=== PATIENT | male | born 1975 | race Caucasian/White ===

== ENCOUNTER 2017-12-12 18:28 | Emergency (ER) | payer MEDICARE ==
[~2017-12-12] VITALS: Ht 182.9 cm; Wt 84.1 kg
[~2017-12-12 18:28] MED LIST: AMOXICILLIN/CLA1 TA1 PO; BACTRIM DS 8001 TAB PO; CELEXA; CEPHALEXIN500 M1 PO; COUMADIN 5MG5 MG/TAB PO; FERROUS SU325 MG/TAB PO; FOLIC ACID 40400 MCG PO; NAPROSYN500 MG PO; NORCO 325 MG-51 TAB PO; NORCO 325 MG-7.1 TAB PO; ROXICODONE30 MG; TRAZADONE HYDR100 MG PO; VITAMIN C PURE500 MG PO; ZITHROMAX 250M250 MG PO; ZOFRAN 4MG T4 MG/TAB PO
[2017-12-12 18:33] VITALS: BP 141/70; TEMP 97
[2017-12-12] MEDS ORDERED: CEPHALEXIN500 M1 PO (21:49)
[2017-12-12] MEDS ORDERED: BACTRIM DS 8001 TAB PO (21:49)
[2017-12-12 22:04] VITALS: PULSE 96
== END 2017-12-12 22:04 | disposition home or self-care (01) ==
LOC: COL.ER 18:28
DX: L02.511 Cutaneous abscess of right hand (principal); F19.90 Other psychoactive substance use, unspecified, uncomplicated

== ENCOUNTER 2017-12-14 17:36 | Emergency (ER) | payer MEDICARE ==
[~2017-12-14] VITALS: Ht 182.9 cm; Wt 84.1 kg
[2017-12-14 17:47] VITALS: BP 152/85; TEMP 97.2
[2017-12-14] MEDS ORDERED: MOBIC 7.5MG7.5 MG PO (18:35)
[2017-12-14 18:46] VITALS: PULSE 95
== END 2017-12-14 18:51 | disposition home or self-care (01) ==
LOC: COL.ER 17:36
DX: L03.113 Cellulitis of right upper limb (principal); L02.413 Cutaneous abscess of right upper limb; M25.512 Pain in left shoulder; F17.210 Nicotine dependence, cigarettes, uncomplicated

== ENCOUNTER 2018-02-12 18:06 | Emergency (ER) | payer SELFPAY ==
[~2018-02-12] VITALS: Ht 182.9 cm; Wt 86.4 kg
[~2018-02-12 18:06] MED LIST changes: +MOBIC 7.5MG7.5 MG PO
[2018-02-12 18:10] VITALS: BP 120/71
[2018-02-12] MEDS ORDERED: PEN-VEE K500 MG PO (18:39)
[2018-02-12 19:11] VITALS: PULSE 70; TEMP 98
== END 2018-02-12 19:07 | disposition home or self-care (01) ==
LOC: COL.ER 18:06
DX: K02.9 Dental caries, unspecified (principal); K04.7 Periapical abscess without sinus; F17.210 Nicotine dependence, cigarettes, uncomplicated

== ENCOUNTER 2018-07-16 23:40 | Emergency (ER) | payer SELFPAY ==
[~2018-07-16] VITALS: Ht 182.9 cm; Wt 84.1 kg
[~2018-07-16 23:40] MED LIST changes: +PEN-VEE K500 MG PO
[2018-07-16 23:43] VITALS: TEMP 98.9
[2018-07-17 02:24] LABS: BASO # 0.1 (0.0-0.2); BASO % 0.5 % (0.0-2.0); EOS # 0.4 (0.0-0.7); EOS % 2.8 % (0-4.0); GRAN # 9.2 (1.4-6.5); GRAN % 72.5 % (42.2-75.2); HEMATOCRIT 45.5 % (42.0-52.0); HEMOGLOBIN 15.1 g/dl (13.5-18.0); LYMPH # 2.1 (1.2-3.4); LYMPH % 16.7 % (20.0-51.0); MEAN CELL VOLUME 83 fl (80.0-100.0); MEAN CORPUSCULAR HEMOGLOBIN 28 pg (27.0-31.0); MEAN CORPUSCULAR HGB CONC 33 g/dl (33.0-37.0); MEAN PLATELET VOLUME 9.8 fl (7.4-10.4); MONO # 0.9 (0.1-0.6); MONO % 7.2 % (1.7-9.3); PLATELET COUNT 195 K/mm3 (130-400); RED BLOOD COUNT 5.46 M/mm3 (4.20-5.60); REDCELL DISTRIBUTION WIDTH-CV 13.6 % (11.5-14.5)
[2018-07-17 02:40] LABS: ALBUMIN 3.7 gm/dL (3.5-5.0); BILIRUBIN,TOTAL 0.5 mg/dL (0.0-1.0); C-REACTIVE PROTEIN 1.6 mg/dL (0.0-0.9); CALCIUM 8.9 mg/dL (8.4-10.2); CREATININE, serum 0.85 mg/dL (0.66-1.25); TOTAL PROTEIN 7.6 gm/dL (6.4-8.2)
[2018-07-17] MEDS ORDERED: AMOXICILLIN 8751 TAB PO (05:22)
[2018-07-17 05:30] VITALS: BP 132/66; PULSE 105
== END 2018-07-17 05:31 | disposition home or self-care (01) ==
LOC: COL.ER 23:40
PROVIDERS: Physician Assistant
DX: L02.11 Cutaneous abscess of neck (principal); L03.221 Cellulitis of neck; F17.210 Nicotine dependence, cigarettes, uncomplicated; F11.10 Opioid abuse, uncomplicated; Z98.890 Other specified postprocedural states
CPT/HCPCS: J2543; Q9967

== ENCOUNTER → 2018-07-18 | Outpatient (CLI) | payer SELFPAY ==
[~2018-07-18] MED LIST changes: +AMOXICILLIN 8751 TAB PO
== END ==
LOC: ZCOL.LAB 15:58
DX: L02.91 Cutaneous abscess, unspecified (principal)

== ENCOUNTER 2019-03-15 01:20 | Emergency (ER) | payer SELFPAY ==
[~2019-03-15] VITALS: Ht 182.9 cm; Wt 90.3 kg
[2019-03-15 01:27] VITALS: BP 103/83; TEMP 98.5
[2019-03-15] MEDS ORDERED: BACTRIM DS 8001 TAB PO (02:21)
[2019-03-15] MEDS ORDERED: CEPHALEXIN500 M1 PO (02:21)
[2019-03-15 02:50] VITALS: PULSE 80
== END 2019-03-15 02:52 | disposition home or self-care (01) ==
LOC: COL.ER 01:20
DX: L02.416 Cutaneous abscess of left lower limb (principal); L03.116 Cellulitis of left lower limb; F17.210 Nicotine dependence, cigarettes, uncomplicated; L03.115 Cellulitis of right lower limb; L02.415 Cutaneous abscess of right lower limb; Z98.890 Other specified postprocedural states

== ENCOUNTER → 2019-09-10 | Outpatient (CLI) | payer OTHER ==
[~2019-09-10] MED LIST changes: +ATARAX 25MG25 MG/TAB PO; +CEFAZOLIN SODI100 ML IV; +CYMBALTA 30MG30 MG PO; +DULCOLAX STOOL100 MG PO; +GOOD NEIGH1200 MG/15 PO; +MIRALAX PA17 GM/Dose PO; +MOTRIN 600600 MG/TAB PO; +MS CONTIN 330 MG/TAB PO; +NICODERM C14 MG/PATC TD; +ROXICODONE 55 MG/TAB PO; +SENNA-S 50 MG-81 TAB PO; +SEROQUEL 2525 MG/TAB PO; +TYLENOL 500MG500 MG PO; +ZOFRAN ODT4 MG PO; +ZOVIRAX800 MG PO
== END ==
LOC: COL.RAD 10:00
DX: M25.551 Pain in right hip (principal); Z96.641 Presence of right artificial hip joint
CPT/HCPCS: Q9967

== ENCOUNTER → 2020-02-25 | Outpatient (CLI) | payer MEDICARE, MEDICAID ==
--- NOTE | 2020-02-23 13:20 | NUR ---
CALLED FOR ORDER
[~2020-02-25] VITALS: Ht 182.9 cm; Wt 104.5 kg
[~2020-02-25] MED LIST changes: +ACIDOPHILIS PO; +CELEXA 20MG20 MG/TAB PO; +COLACE 100100 MG/CAP PO; +DAZIDOX10 MG PO; +FLEXERIL 1010 MG/TAB PO; +LOVENOX 4040 MG/0.4 SQ; +MASON NATURAL325 MG PO; +NICODERM C21 MG/PATC TD; +REMERON30 MG PO; +ROCEPHIN 2GM VIAL21 IJ; +SENOKOT S 50 MG1 TAB PO; +TYLENOL W/COD1 UDTAB PO
[2020-02-25 13:19] VITALS: BP 122/79; PULSE 83
[2020-02-25 14:15] VITALS: BP 117/75; PULSE 80
--- NOTE | 2020-02-25 14:45 | NUR ---
PT TAKEN DOWNSTAIRS IN WHEELCHAIR TO POV.
== END ==
LOC: COL.RAD 12:00
DX: Z45.2 Encounter for adjustment and management of vascular access device (principal)

== ENCOUNTER 2020-04-24 17:45 | Emergency (ER) | payer MEDICAID ==
[~2020-04-24] VITALS: Ht 182.9 cm; Wt 104.5 kg
[2020-04-24 18:10] VITALS: BP 126/80; TEMP 98.5
[2020-04-24 19:57] LABS: BASO % 0.5 % (0.0-2.0); EOS # 0.1 (0.0-0.7); EOS % 0.9 % (0-4.0); GRAN # 6.7 (1.4-6.5); GRAN % 75.8 % (42.2-75.2); HEMATOCRIT 39.1 % (42.0-52.0); HEMOGLOBIN 12.1 g/dl (13.5-18.0); LYMPH # 1.2 (1.2-3.4); MEAN CELL VOLUME 82 fl (80.0-100.0); MEAN CORPUSCULAR HEMOGLOBIN 25 pg (27.0-31.0); MEAN CORPUSCULAR HGB CONC 31 g/dl (33.0-37.0); MEAN PLATELET VOLUME 10.5 fl (7.4-10.4); MONO # 0.8 (0.1-0.6); MONO % 8.6 % (1.7-9.3); PLATELET COUNT 169 K/mm3 (130-400); RED BLOOD COUNT 4.78 M/mm3 (4.20-5.60)
[2020-04-24 20:06] LABS: ALBUMIN 4.1 gm/dL (3.5-5.0); BILIRUBIN,TOTAL 1.1 mg/dL (0.0-1.0); C-REACTIVE PROTEIN 3.2 mg/dL (0.0-0.9); CALCIUM 9.4 mg/dL (8.4-10.2); CREATININE, serum 0.86 (0.66-1.25); POTASSIUM 4.2 mmol/L (3.4-5.0)
[2020-04-24] MEDS ORDERED: DOXYCYCLINE 10100 MG PO (20:43)
[2020-04-24 21:31] VITALS: PULSE 73
== END 2020-04-24 21:31 | disposition home or self-care (01) ==
LOC: COL.ER 17:45
PROVIDERS: Emergency Medicine
DX: R60.0 Localized edema (principal); L03.116 Cellulitis of left lower limb; F41.9 Anxiety disorder, unspecified
CPT/HCPCS: J1650; J1885

== ENCOUNTER → 2020-05-05 | Outpatient (CLI) | payer MEDICAID ==
[~2020-05-05] MED LIST changes: +ARYMO ER60 MG PO; +DOXYCYCLINE 10100 MG PO; +ELIDEL 100G TOP; +PERCOCET 325 MG1 TA3 PO
== END ==
LOC: COL.LAB 08:00
DX: Z20.828 Contact with and (suspected) exposure to other viral communicable diseases (principal)

== ENCOUNTER 2020-05-11 08:51 | Day surgery (SDC) | payer MEDICAID ==
[~2020-05-11] VITALS: Ht 182.9 cm; Wt 100.8 kg
--- NOTE | 2020-05-11 08:45 | NUR ---
PATIENT ADMITED INTO ROOM 330 FOR ELECTIVE RIGHT HIP REVISION. SEE ORDERS.
[~2020-05-11 08:51] MED LIST changes: -ARYMO ER60 MG PO; -ELIDEL 100G TOP; -PERCOCET 325 MG1 TA3 PO
[2020-05-11 09:02] VITALS: BP 110/71; PULSE 72; TEMP 98.3
[2020-05-11] MEDS ORDERED: ARYMO ER60 MG PO (09:28)
[2020-05-11] MEDS ORDERED: MS CONTIN 330 MG/TAB PO (09:30)
[2020-05-11] MEDS ORDERED: PERCOCET 325 MG1 TA3 PO (09:33)
[2020-05-11] MEDS ORDERED: ELIDEL 100G TOP (09:35)
--- NOTE | 2020-05-11 10:10 | NUR ---
PATIENTS URINE DRUG SCREEN CAME BACK POSITIVE. SURGEON, ANESTHESIA & OR STAFF NOTIFIED.
[2020-05-11 10:37] LABS: TRICYCLIC ANTIDEPRESS URINE NEGATIVE
--- NOTE | 2020-05-11 11:00 | NUR ---
AT BEDSIDE TO TALK WITH PATIENT ABOUT HIS DRUG ABUSE AND POSITIVE DRUG SCREEN ON ADMIT. PATIENT TESTED POSITIVE FOR MULTIPLE CONTROLLED SUBSTANCES ON ADMIT INCLUDING METH. PATIENT HAS KNOWN HX OF DRUG/ALCOHOL ABUSE AND IS HEP C POSITIVE. PATIENT CLAIMS HE WAS ONLY AROUND PEOPLE AT A [employer] DOING METH. EDUCATED PATIENT ABOUT HOW A POSITIVE DRUG SCREEN WORKS AND WHAT THAT INDICATES. PATIENT ADMITES HE DOESN'T DO METH "ALL THE TIME" BUT WAS UNABLE TO STAY AWAY FROM METH FOR 48-72 HOURS BEFORE HIS SCHEDULED SURGERY. PATIENT ALSO ADMITS HE HAS BEEN TAKEN XANAX WITHOUT A PRESCRIPTION. TALKED WITH PATIENT AND TOLD HIM HE WOULD INFORM HIS PCP, AND SAID "I NEED YOU TO HELP ME, HELP YOU". WENT ON TO SAY WE WOULD GET HIM RESCHEDULED BUT WE NEED A PLAN TO AVOID THIS FROM HAPPENING AGAIN. THE PATIENT AGREED. FORMULA TECHNICIAN NOTIFIED OF CANCELED PROCEDURE, INSURANCE/FORMS TO BE COMPLETED BEFORE RELEASE.
--- NOTE | 2020-05-11 12:06 | NUR ---
EMERITA was notified by the patient's RN that the patient's surgery is being canceled, due to him testing postitive for drugs. EMERITA informed valet service attendant, Emilia. The patient is being downgraded to observation status. EMERITA and valet service attendant, Emilia, met with the patient to inform. EMERITA read the Medicare Outpatient Observation Notice Form to the patient. The patient verbalized understanding and gave EMERITA approval to sign the form on his behalf. EMERITA provided him with a copy.
--- NOTE | 2020-05-11 13:00 | NUR ---
PATIENT'S RIDE IS HERE. PATIENT DISCHARGING HOME
== END 2020-05-11 13:00 | disposition home or self-care (01) ==
LOC: JCC 08:51 → SDCO 08:51 → JCC 08:51 → SDCO 13:00
PROVIDERS: Nurse Anesthetist, Certified Registered
DX: M25.551 Pain in right hip (principal); Z53.09 Procedure and treatment not carried out because of other contraindication; B19.20 Unspecified viral hepatitis C without hepatic coma; F17.210 Nicotine dependence, cigarettes, uncomplicated; F15.90 Other stimulant use, unspecified, uncomplicated; F10.20 Alcohol dependence, uncomplicated; F11.90 Opioid use, unspecified, uncomplicated; Z79.899 Other long term (current) drug therapy
CPT/HCPCS: OP

== ENCOUNTER 2020-05-16 16:08 | Inpatient (IN) | payer MEDICARE, MEDICAID ==
[~2020-05-16] VITALS: Ht 182.9 cm; Wt 106.8 kg
[~2020-05-16 16:08] MED LIST changes: +ARYMO ER60 MG PO; +ELIDEL 100G TOP; +PERCOCET 325 MG1 TA3 PO
[2020-06-13] VITALS (13 sets, daily range): BP systolic 115–150; BP diastolic 62–95; PULSE 58–81; TEMP 97–98.3
--- NOTE | 2020-06-13 07:20 | NUR ---
PT NOT HERE AND NOTIFIED DR. BETANCOURT, CALLED PT AND LEFT MESSAGE NO ANSWER.
[2020-06-13 09:10] LABS: TRICYCLIC ANTIDEPRESS URINE NEGATIVE
--- NOTE | 2020-06-13 10:02 | NUR ---
PT CLEARED FOR SURGERY PER SUSAN GARCIA RN AWARE. VSS. PT TO SURGERY PER BED WITH RENAN AT THIS TIME.
--- NOTE | 2020-06-13 16:30 | NUR ---
Copyist met with patient and patient's significant other, Brianna (ph#[phone]) to discuss discharge planning. Patient lives in [place] with Brianna and sees Dr. Garay in [place] for primary care. Patient obtains medications from [facility] with no difficulties. Patient is mostly independent with ADLS but needs assistance with socks and shoes, which Brianna provides. Patient has a walker, crutches, a shower chair, and stool riser at home. Patient states he lives in a basement apartment and uses the crutches to get up and down the stairs. Patient's parents, Azael (ph#[phone]) and Xin (ph#[phone]) live in [facility] and March is patient's DP-. Copy is located in [facility]. Patient would like to be able to go home at discharge but SW will continue to follow for discharge needs.
--- NOTE | 2020-06-13 18:00 | NUR ---
PT TO ROOM 327 PER BED WITH REPORT FROM ADRIAN[facility] PACU @3137. PT IS A/O X3 WITH APPROPRIATE ANSWERS TO QUESTIONS. LUNGS CTA, BOWEL SOUNDS PRESENT. DRESSING TO RIGHT HIP CDI WITH OCCLUSIVE FOAM TAPE OVER INCISION. PHP WEBSITE DEVELOPER LEVEL 1 SET UP AND OK TO USE DR BETANCOURT PO MEDS INADDITION TO REGULAR HOME MEDS OF PT. PT HAS LONG NARCOTIC EXPSURE/TOLERANCE. IV TO PUMP.
--- NOTE | 2020-06-13 19:30 | NUR ---
Per Verbal order from Dr. Rinaldi. Ok to give PRN oral and IV narcotics with the TRAIN CALLER.
--- NOTE | 2020-06-13 19:45 | NUR ---
Pt. laying in bed at this time. Pt. is A&OX3, assessment complete. TLC to rt. IJ patent, IV fluids and visitor services coordinator infusing per orders. Dressing to rt. hip CDI. Pt. reports pain at a 8 on pain scale. Gave pain meds per orders. Pt. has goldsmith catheter to DD, clear yellow urine noted. Pt. denies further needs, call light within reach.
[2020-06-14 03:36] VITALS: BP 111/62; PULSE 85; TEMP 98.8
[2020-06-14 06:56] LABS: HEMATOCRIT 26.6 % (42.0-52.0); HEMOGLOBIN 8.5 g/dl (13.5-18.0)
[2020-06-14 07:45] VITALS: BP 107/64; PULSE 84; TEMP 98.9
--- NOTE | 2020-06-14 08:00 | NUR ---
PATIENT IS ORIENTED X3 BUT DISPLAYS OCCATIONAL FORGETFULNESS AND IS FREQUENTLY DROWSY. MORPHINE NIGHT TIME BABYSITTER DC'D. PATIENT STILL GETTING BOTH SCHEDULED AND PRN PAIN MEDICATIONS, APPROX EVERY 2 HOURS AROUND THE CLOCK. PATIENT FREQUENTLY RATES PAIN IN RIGHT HIP AT 8-10, EVEN WHEN HAVING A HARD TIME STAYING AWAKE. POST OPERATIVE RIGHT HIP DRESSING CHANGED TO AQUACEL PER ORDERS. TEDS & SCD'S TO BLE. POSITIVE PEDAL PULSES TO BLE. PATIENT EAT/DRINK/VOIDING SUFFIECENT AMOUNTS. NO C/O N/V. RIGHT IJ TO INT. BREAKFAST TRAY AT BEDSIDE. AM MEDS GIVEN. HEAD TO TOE ASSESSMENT COMPLETE. NO OTHER NEEDS AT THIS TIME. CALL LIGHT IN REACH.
[2020-06-14] MEDS ORDERED: ATARAX 25MG25 MG/TAB PO (09:59)
--- NOTE | 2020-06-14 10:28 | NUR ---
Initial visit; Ted recalls Wood Model Builder from previous visits and thanked her for offering spiritual care; especially listening, visiting and offering prayer.
[2020-06-14 11:28] VITALS: BP 114/67; PULSE 80; TEMP 99
[2020-06-14 16:19] VITALS: BP 120/74; PULSE 85; TEMP 98.8
--- NOTE | 2020-06-14 16:43 | NUR ---
Tractor Distributor received a phone call from Lily at [facility] who advised they provide services to patient. EMERITA faxed updates to Lily and will continue to follow.
[2020-06-14 19:03] VITALS: BP 118/63; PULSE 91; TEMP 97.8
--- NOTE | 2020-06-14 21:15 | NUR ---
Pt. laying in bed. Pt. is A&OX3, assessment complete. TLC to rt. IJ patent. Dressing to rt. hip cdi. Pt. reports pain at an 8 on pain scale. Gave pain meds per orders. Pt. denies further needs, call light within reach.
[2020-06-14 23:29] VITALS: BP 124/74; PULSE 95; TEMP 98.2
[2020-06-15 03:52] VITALS: BP 119/79; PULSE 76; TEMP 97.6
[2020-06-15] MEDS ORDERED: NORCO 325 MG-7.1 TAB PO (07:22)
[2020-06-15] MEDS ORDERED: XARELTO10 MG PO (07:22)
[2020-06-15] MEDS ORDERED: DAZIDOX10 MG PO (07:28)
[2020-06-15 07:29] LABS: HEMATOCRIT 27.6 % (42.0-52.0); HEMOGLOBIN 8.9 g/dl (13.5-18.0)
[2020-06-15 07:40] VITALS: BP 126/74; PULSE 80; TEMP 98.8
--- NOTE | 2020-06-15 08:58 | NUR ---
PT OUT TO [facility] FOR THERAPY. AMBULATING WITH STEADY GAIT. PAIN CONTROLLED WITH CURRENT REGIMINE. PLAN ON DISCHARGE LATER TODAY. DRESSING TO RIGHT HIP CDI. PLAN ON OUT PT THERAPY IN [place].
[2020-06-15 12:30] VITALS: BP 126/66; PULSE 96; TEMP 97.9
--- NOTE | 2020-06-15 13:41 | NUR ---
IJ TRIPLE LUMEN CATHETER DISCONTINUED PER PROTOCOL. HEMOSTASIS ACHIEVED, PRESSURE HELD FOR 10 MIN. DRESSING APPLIED. PT EDUCATED ON POST CENTRAL LINE REMOVAL.
--- NOTE | 2020-06-15 13:42 | NUR ---
PT TOLERATED PREVIOUS PROCEEDURE WELL.
--- NOTE | 2020-06-15 14:05 | NUR ---
DISCHARGE INSTUCTIONS REVIEWED WITH PATIENT AND . QUESTIONS ANSWERED PATIENT TAKEN TO FRONT IN WHEEL CHAIR.
--- NOTE | 2020-06-15 16:22 | NUR ---
Patient to discharge home today. EMERITA met with patient who states he feels ready to get back home. EMERITA contacted Lily at [facility] who advised they would continue with prison and be in contact with Dr. Garay. No additional needs at this time.
== END 2020-06-15 14:00 | disposition home or self-care (01) | DRG 468 ==
LOC: JCC 06-13 08:31 → SDCO 06-13 12:30 → EDSTATUS 06-13 12:30 → JCC 06-13 14:55
PROVIDERS: Registered Nurse; ADMIT Orthopaedic Surgery
PROC: 0SP90JZ Removal of Synthetic Substitute from Right Hip Joint, Open Approach (ICD-10-PCS; 2020-06-13)
PROC: 0SR904Z Replacement of Right Hip Joint with Ceramic on Polyethylene Synthetic Substitute, Open Approach (ICD-10-PCS; principal; 2020-06-13 12:30)
DX: T84.51XA Infection and inflammatory reaction due to internal right hip prosthesis, initial encounter (principal)
CPT/HCPCS: A4314; A9284; C1713; C1776; J0690; J1170; J2250; J2270; J2704; J3010; J7042; J7120

== ENCOUNTER → 2021-10-04 | Outpatient (CLI) | payer MEDICARE, MEDICAID ==
[~2021-10-04] MED LIST changes: +XARELTO10 MG PO
[2021-10-04 13:56] LABS: CALCIUM 8.9 mg/dL (8.4-10.2); CREATININE, serum 0.83 mg/dL (0.72-1.25); POTASSIUM 5.4 mmol/L (3.5-4.5)
[2021-10-04 14:17] LABS: THYROID STIMULATING HORMONE 1.922 uIU/mL (0.350-4.940)
== END ==
LOC: COL.RAD 08:55 → COL.LAB 08:55 → COL.RAD 11:15
PROVIDERS: Internal Medicine
DX: E83.52 Hypercalcemia (principal); B99.9 Unspecified infectious disease

== ENCOUNTER 2021-10-29 09:19 | Emergency (ER) | payer MEDICARE, MEDICAID ==
[~2021-10-29] VITALS: Ht 177.8 cm; Wt 100.0 kg
[2021-10-29 09:29] VITALS: TEMP 98
[2021-10-29 11:19] VITALS: BP 141/82; PULSE 83
== END 2021-10-29 11:19 | disposition home or self-care (01) ==
LOC: COL.ER 09:19
DX: M79.604 Pain in right leg (principal); M79.605 Pain in left leg; F41.9 Anxiety disorder, unspecified; F17.210 Nicotine dependence, cigarettes, uncomplicated; Z79.899 Other long term (current) drug therapy
CPT/HCPCS: J1650; J2270

== ENCOUNTER 2021-11-02 21:33 | Inpatient (IN) | payer MEDICARE, MEDICAID ==
[~2021-11-02] VITALS: Ht 180.3 cm; Wt 104.4 kg
[2021-11-02 22:47] LABS: BASO % 0.4 % (0.0-2.0); EOS # 0.1 K/mm3 (0.0-0.7); EOS % 1.4 % (0.0-4.0); GRAN # 4.9 K/mm3 (1.4-6.5); GRAN % 61.5 % (42.2-75.2); HEMATOCRIT 34.9 % (42.0-52.0); HEMOGLOBIN 11.9 g/dl (13.5-18.0); LYMPH # 1.8 K/mm3 (1.2-3.4); LYMPH % 22.5 % (20.0-51.0); MEAN CELL VOLUME 94 fl (80.0-100.0); MEAN CORPUSCULAR HEMOGLOBIN 32 pg (27-31); MEAN CORPUSCULAR HGB CONC 34 g/dl (33.0-37.0); MEAN PLATELET VOLUME 10.2 fl (7.4-10.4); MONO # 1.1 K/mm3 (0.1-0.6); MONO % 13.7 % (1.7-9.3); PLATELET COUNT 110 K/mm3 (130-400); RED BLOOD COUNT 3.73 M/mm3 (4.20-5.60); REDCELL DISTRIBUTION WIDTH-CV 14.3 % (11.5-14.5)
[2021-11-02 23:01] LABS: ALANINE AMINOTRANSFERASE 34 U/L (0-55); ALBUMIN 3.3 gm/dL (3.5-5.0); ALKALINE PHOSPHATASE 72 U/L (40-150); ANION GAP 11 mmol/L (7-16); AST,SGOT 33 U/L (5-34); BILIRUBIN,TOTAL 0.9 mg/dL (0.2-1.2); BLOOD UREA NITROGEN 14 mg/dL (9-21); CALCIUM 8.8 mg/dL (8.4-10.2); CARBON DIOXIDE 23 mmol/L (22-29); CHLORIDE 101 mmol/L (98-107); CREATININE, serum 0.75 mg/dL (0.72-1.25); GLUCOSE 123 mg/dL (70-99); POTASSIUM 3.6 mmol/L (3.5-4.5); SODIUM 135 mmol/L (136-145); TOTAL PROTEIN 7.6 gm/dL (6.2-8.1)
[2021-11-02 23:07] LABS: TROPONIN-I < 0.010 ng/mL (0.00-0.033)
[2021-11-03] VITALS (8 sets, daily range): BP systolic 89–103; BP diastolic 51–67; PULSE 62–72; TEMP 97.9–98.7
[2021-11-03 01:37] LABS: TRICYCLIC ANTIDEPRESS URINE NEGATIVE
[2021-11-03] MEDS ORDERED: CELEBREX 200MG200 MG PO (02:13)
[2021-11-03] MEDS ORDERED: MS CONTIN 115 MG/TAB PO (02:13)
[2021-11-03] MEDS ORDERED: CELEXA 20MG20 MG/TAB PO (02:13)
[2021-11-03] MEDS ORDERED: CEPHALEXIN500 M1 PO (02:14)
[2021-11-03] MEDS ORDERED: KLONOPIN 0.5MG0.5 MG PO (02:14)
[2021-11-03] MEDS ORDERED: SINGULAIR 110 MG/TAB PO (02:15)
[2021-11-03] MEDS ORDERED: NICODERM C21 MG/PATC TD (02:15)
[2021-11-03] MEDS ORDERED: XYZAL5 MG PO (02:15)
[2021-11-03] MEDS ORDERED: REMERON30 MG PO (02:15)
[2021-11-03 04:27] LABS: ARTERIAL BLD GAS O2 SATURATION 91.5 % (92-100); ARTERIAL BLOOD GAS BASE EXCESS -0.3 (-2-2); ARTERIAL BLOOD GAS HCO3 27.2 meq/L (22-26); ARTERIAL BLOOD GAS PCO2 57.8 mmHg (35-45); ARTERIAL BLOOD GAS PO2 64.3 mmHg (80-100); ARTERIAL BLOOD GAS pH 7.29 (7.35-7.45)
--- NOTE | 2021-11-03 07:33 | NUR ---
PT ARRIVED TO MEDICAL UNIT AT 0405HRS TO [id number]. PT A&O X4; VSS; O2 2L; PT DENIES CHEST PAIN, SOB, N,V,D, OR DIZZINESS. PT COMPLAINED OF LOWER LEG PAIN. PT GIVEN MORPHINE FOR PAIN. ADMISSION ASSESSMENT COMPLETE. MED REC COMPLETE. PT ORIENTED TO MEDICAL FLOOR, ROOM, AND HOSPITAL POLICY. POC DISCUSSED WITH PT. PT VERBALIZED UNDERSTANDING. ALL QUESTIONS AND CONCERN ADDRESSED. PT EXPRESSED NO ADDITIONAL NEEDS AT THIS TIME. CALL LIGHT WITHIN REACH.
[2021-11-03 09:49] LABS: PROTHROMBIN TIME 11.5 SECONDS (9.7-12.8)
[2021-11-03 09:52] LABS: PARTIAL THROMBOPLASTIN TIME 26.6 SECONDS (26.0-37.0)
--- NOTE | 2021-11-03 11:07 | NUR ---
SW met with the patient to discuss discharge plan. The patient lives in [place] with his common law , Brianna Howell. He reports independence with ADLs and has a cane, walker, and wheelchair. The patient's PCP is Dr. Rahul Garay and he receives his medications from [facility]. The patient's DPOA-HC is in EMR and he designated his mother, Xin Gordillo (ph#[phone]). His mother and father, Azael (ph#[phone]), live in [facility]. The patient plans on returning home with his life partner upon discharge. The patient is currently on 2 liters of oxygen. The patient tested positive for opiates, oxycodone, methamphetamines, benzos, and cannabinoids. The patient also has a history of alcohol use. SW addressed this with the patient and discussed inpatient/outpatient treatment options. The patient reports that he is not interested in in any treatment or resources at this time. He reports that he attends AA meetings and has been going to meetings for 6-12 years. He had no other concerns for SW at this time. SW to continue to monitor. *Discharge plan: home with life partner*
--- NOTE | 2021-11-03 11:46 | NUR ---
Patient laying in bed, very drowsy. PICC placed by Kelly and is working well.
--- NOTE | 2021-11-03 17:23 | NUR ---
Rose notified that BP was low, 89/51. 500mL bolus ordered and running. Patient asymptomatic.
[2021-11-04] VITALS (14 sets, daily range): BP systolic 94–126; BP diastolic 42–79; PULSE 64–79; TEMP 97.1–98.5
--- NOTE | 2021-11-04 06:34 | NUR ---
ASSESSMENT COMPLETE FOR THIS SHIFT. PT RESTING IN BED FALLING IN AND OUT OF SLEEP. PT COMPLAINS OF LOWER LEG DISCOMFORT. PT DENIES PALPITATIONS, N/V, SOB OR DIZZINESS. PT DOESN'T SEEM TO BE HAVING ANY PROBLEMS WITH WITHDRAWAL SO FAR THIS SHIFT. WILL CONTINUE TO MONITOR. PT STATES HE HAS NO OTHER NEEDS AT THIS TIME. CALL LIGHT WITHIN REACH.
[2021-11-04 07:52] LABS: CALCIUM 8.3 mg/dL (8.4-10.2); CREATININE, serum 0.62 mg/dL (0.72-1.25); POTASSIUM 3.4 mmol/L (3.5-4.5)
[2021-11-04 08:00] LABS: BASO % 0.4 % (0.0-2.0); EOS # 0.1 K/mm3 (0.0-0.7); EOS % 2.7 % (0.0-4.0); GRAN # 2.8 K/mm3 (1.4-6.5); GRAN % 62.4 % (42.2-75.2); HEMOGLOBIN 11.7 g/dl (13.5-18.0); LYMPH % 22.6 % (20.0-51.0); MEAN CELL VOLUME 94 fl (80.0-100.0); MEAN CORPUSCULAR HEMOGLOBIN 32 pg (27-31); MEAN CORPUSCULAR HGB CONC 34 g/dl (33.0-37.0); MEAN PLATELET VOLUME 10.1 fl (7.4-10.4); MONO # 0.5 K/mm3 (0.1-0.6); MONO % 11.2 % (1.7-9.3); PLATELET COUNT 114 K/mm3 (130-400); RED BLOOD COUNT 3.72 M/mm3 (4.20-5.60); REDCELL DISTRIBUTION WIDTH-CV 14.7 % (11.5-14.5)
[2021-11-04 08:04] LABS: HEMATOCRIT 34.9 % (42.0-52.0)
--- NOTE | 2021-11-04 09:40 | NUR ---
Shift assessment complete. Flu shot administered per orders to left deltoid and VIS given to patient. A&Ox4. Heart RRR. Lungs CTA. Denies pain, dizziness, or SOA. NC on at 2 lpm O2. Reports 5/10 pain to left foot. Left foot edematous with bruises to top of foot and manrique. Area is warm and tender to touch. Pt denies needs at this time. Call light in reach.
[2021-11-05 03:44] VITALS: BP 135/78; PULSE 71; TEMP 98.7
[2021-11-05 06:24] LABS: HEMATOCRIT 37.2 % (42.0-52.0); HEMOGLOBIN 12.6 g/dl (13.5-18.0); MEAN CELL VOLUME 93 fl (80.0-100.0); MEAN CORPUSCULAR HEMOGLOBIN 32 pg (27-31); MEAN CORPUSCULAR HGB CONC 34 g/dl (33.0-37.0); MEAN PLATELET VOLUME 9.7 fl (7.4-10.4); PLATELET COUNT 144 K/mm3 (130-400); REDCELL DISTRIBUTION WIDTH-CV 14.7 % (11.5-14.5)
[2021-11-05 06:26] LABS: CALCIUM 8.8 mg/dL (8.4-10.2); CREATININE, serum 0.69 mg/dL (0.72-1.25); MAGNESIUM 1.8 mg/dL (1.6-2.6); POTASSIUM 3.8 mmol/L (3.5-4.5)
--- NOTE | 2021-11-05 06:58 | NUR ---
ASSESSMENT COMPLETE FOR THIS SHIFT. PT NAPPING IN BED. PT DENIES PAIN, PALPITATIONS, N,V,D, SOB OR DIZZINESS. PT HASN'T REALLY HAD ANY ISSUES WITH WITHDRAWAL, HOWEVER HE DID COMPLAIN OF HAVING RESTLESS LEGS, SO I GAVE HIM ONE GRAM OF ATIVAN AROUND MIDNIGHT. PT STATES HE HAD NO OTHER NEEDS AT THIS TIME. CALL LIGHT WITHIN REACH.
[2021-11-05 07:59] VITALS: BP 123/92; PULSE 73; TEMP 97.8
--- NOTE | 2021-11-05 09:00 | NUR ---
Shift assessment complete. Pt lying in bed upon entry. A&Ox4. Heart RRR. Lungs CTA. Remains on room air. Left foot no longer swollen, redness and bruising to calf and foot remain. Reports pain in foot is 4-5/10. Denies concerns at this time. Call light in reach.
[2021-11-05] MEDS ORDERED: OMNICEF 300MG300 MG PO (09:22)
[2021-11-05] MEDS ORDERED: MONODOX100 PO (09:24)
[2021-11-05] MEDS ORDERED: FOLIC ACID 11 MG/TA1 PO (09:26)
[2021-11-05] MEDS ORDERED: COMPLETE MULTI1 TAB PO (09:27)
[2021-11-05] MEDS ORDERED: THIAMINE 1100 MG/TAB PO (09:27)
--- NOTE | 2021-11-05 11:04 | NUR ---
Discharge instructions discussed w/pt and all questions answered. PICC removed by TanishaRN and pt remained flat for 30 minutes. No S/S complication at site. Pt escorted out by medical intensive care unit nurse w/all belongings.
== END 2021-11-05 11:00 | disposition home or self-care (01) | DRG 193 ==
LOC: COL.ER 21:33 → MEDICAL 11-03 02:20
PROVIDERS: Emergency Medicine; Internal Medicine; Nurse Practitioner Family; Physician Assistant; ADMIT Student in an Organized Health Care Education/Training Program
PROC: 02HV33Z Insertion of Infusion Device into Superior Vena Cava, Percutaneous Approach (ICD-10-PCS; principal; 2021-11-03)
DX: J18.9 Pneumonia, unspecified organism (principal); J96.01 Acute respiratory failure with hypoxia; J96.02 Acute respiratory failure with hypercapnia; L03.116 Cellulitis of left lower limb; F41.9 Anxiety disorder, unspecified; G47.00 Insomnia, unspecified; G89.29 Other chronic pain; F17.210 Nicotine dependence, cigarettes, uncomplicated; R73.9 Hyperglycemia, unspecified; I27.20 Pulmonary hypertension, unspecified; D64.9 Anemia, unspecified; D69.6 Thrombocytopenia, unspecified; F11.10 Opioid abuse, uncomplicated; F15.10 Other stimulant abuse, uncomplicated; F12.10 Cannabis abuse, uncomplicated; R91.1 Solitary pulmonary nodule; Z96.641 Presence of right artificial hip joint; Z20.822 Contact with and (suspected) exposure to COVID-19
CPT/HCPCS: 99223-AI; 99232-AI; 99239; C1751; J0696; J1650; J7040; Q9967

== ENCOUNTER 2022-05-20 21:05 | Inpatient (IN) | payer MEDICARE, MEDICAID ==
[~2022-05-20] VITALS: Ht 167.6 cm; Wt 114.5 kg
[~2022-05-20 21:05] MED LIST changes: +CELEBREX 200MG200 MG PO; +COMPLETE MULTI1 TAB PO; +FOLIC ACID 11 MG/TA1 PO; +KLONOPIN 0.5MG0.5 MG PO; +MONODOX100 PO; +MS CONTIN 115 MG/TAB PO; +OMNICEF 300MG300 MG PO; +SINGULAIR 110 MG/TAB PO; +THIAMINE 1100 MG/TAB PO; +XYZAL5 MG PO
[2022-05-20 21:47] LABS: ARTERIAL BLD GAS O2 SATURATION 92.1 % (92-100); ARTERIAL BLOOD GAS BASE EXCESS -6.6 (-2-2); ARTERIAL BLOOD GAS HCO3 22.2 meq/L (22-26); ARTERIAL BLOOD GAS PCO2 59.3 mmHg (35-45); ARTERIAL BLOOD GAS PO2 77.2 mmHg (80-100); ARTERIAL BLOOD GAS pH 7.19 (7.35-7.45)
[2022-05-20 22:26] LABS: ALBUMIN 3.2 gm/dL (3.5-5.0); BILIRUBIN,TOTAL 1.5 mg/dL (0.2-1.2); CALCIUM 8.9 mg/dL (8.4-10.2); CREATININE, serum 1.14 mg/dL (0.72-1.25); POTASSIUM 4.5 mmol/L (3.5-4.5); TOTAL PROTEIN 7.4 gm/dL (6.2-8.1)
[2022-05-20 23:37] LABS: COLLECTION METHOD CLEAN CATCH
[2022-05-20 23:40] LABS: BASO % 0.2 % (0.0-2.0); EOS % 0.2 % (0.0-4.0); GRAN # 4.7 K/mm3 (1.4-6.5); GRAN % 88.4 % (42.2-75.2); HEMATOCRIT 37.7 % (42.0-52.0); HEMOGLOBIN 12.2 g/dl (13.5-18.0); LYMPH # 0.2 K/mm3 (1.2-3.4); LYMPH % 3.2 % (20.0-51.0); MEAN CELL VOLUME 106 fl (80.0-100.0); MEAN CORPUSCULAR HEMOGLOBIN 34 pg (27-31); MEAN CORPUSCULAR HGB CONC 32 g/dl (33.0-37.0); MEAN PLATELET VOLUME 12.5 fl (7.4-10.4); MONO # 0.4 K/mm3 (0.1-0.6); MONO % 7.6 % (1.7-9.3); PLATELET COUNT 61 K/mm3 (130-400); RED BLOOD COUNT 3.55 M/mm3 (4.20-5.60); REDCELL DISTRIBUTION WIDTH-CV 14.1 % (11.5-14.5)
[2022-05-20 23:46] LABS: MUCOUS Present (NOT PRESENT); PH 5 (5-8); SQUAMOUS EPITHELIAL None Seen /hpf (0-10); URINE APPEARANCE Clear (CLEAR/HAZY); URINE BACTERIA None Seen /hpf (NONE SEEN); URINE BLOOD Negative (NEGATIVE); URINE COLOR Yellow (YELLOW); URINE GLUCOSE Negative (NEGATIVE); URINE KETONE Trace (NEGATIVE); URINE NITRATE Negative (NEGATIVE); URINE PROTEIN(semi-quant) Negative (NEGATIVE); URINE UROBILINOGEN Negative (NEGATIVE)
[2022-05-20 23:54] LABS: TRICYCLIC ANTIDEPRESS URINE POSITIVE
[2022-05-20 23:59] LABS: ACETAMINOPHEN < 1.0 ug/mL (10-30); ALCOHOL(ethanol),MEDICAL < 10 mg/dL (0-10); SALICYLATE < 5.0 mg/dL (15.0-30.0)
[2022-05-21] VITALS (809 sets, daily range): BP systolic 92–143; BP diastolic 67–93; PULSE 82–96; TEMP 97.9–99.8; O2SAT 87–100
[2022-05-21 00:41] LABS: ARTERIAL BLOOD GAS BASE EXCESS 0.3 (-2-2); ARTERIAL BLOOD GAS HCO3 25.7 meq/L (22-26); ARTERIAL BLOOD GAS PCO2 44.5 mmHg (35-45); ARTERIAL BLOOD GAS PO2 108.6 mmHg (80-100); ARTERIAL BLOOD GAS pH 7.38 (7.35-7.45)
[2022-05-21 01:10] LABS: MAGNESIUM 1.5 mg/dL (1.6-2.6); PHOSPHOROUS 6.1 mg/dL (2.3-4.7)
[2022-05-21 04:49] LABS: ARTERIAL BLD GAS O2 SATURATION 94.4 % (92-100); ARTERIAL BLD GAS TCO2 CT 29.5; ARTERIAL BLOOD GAS BASE EXCESS 1.7 (-2-2); ARTERIAL BLOOD GAS HCO3 27.9 meq/L (22-26); ARTERIAL BLOOD GAS PCO2 50.8 mmHg (35-45); ARTERIAL BLOOD GAS pH 7.36 (7.35-7.45)
[2022-05-21 04:49] LABS: ARTERIAL BLD GAS TCO2 CT 27.1
--- NOTE | 2022-05-21 05:29 | NUR ---
0345 - PT EXTUBATED AT THIS TIME PER RT. RN AND HOSPITALIST ALSO PRESENT. PT CAMILA WELL. PLACED ON 7L OXYMASK SPO2 94%. PT STILL VERY DROWSY BUT FOLLOWING COMMANDS. VSS. WILL CONTINUE TO MONITOR
--- NOTE | 2022-05-21 07:00 | NUR ---
Bedside shift report given. patient asleep and drowsy. patient on narcan gtt, ns with with two pivs. patient has goldsmith that in intact, draining, and secured to leg.
--- NOTE | 2022-05-21 10:31 | NUR ---
Calculator Operator spoke with RN who advised patient not able to participate in intake at this time. Patient is on bipap and not answering questions very well. SW contacted patient's mother, March (ph#[phone]) to complete intake as she is patient's DPOA-HC. Copy located in EMR. Patient lives in [place] with his (common law) , Brianna. Patient sees Dr. Garay for primary care and is normally independent with ADLS. SW provided ICU contact information to March so she can call to request updates. Patient had a positive UDS for opiates, buprenorphine, oxycodone, tricyclic antidepressants, methamphetamines, and benzodiazepines. Patient also has a history of alcohol use. SW to offer drug/alcohol resources once patient is more stable.
[2022-05-21 11:37] LABS: ARTERIAL BLD GAS O2 SATURATION 97.9 % (92-100); ARTERIAL BLD GAS TCO2 CT 26.9; ARTERIAL BLOOD GAS HCO3 25.6 meq/L (22-26); ARTERIAL BLOOD GAS PCO2 40.8 mmHg (35-45); ARTERIAL BLOOD GAS PO2 102.5 mmHg (80-100); ARTERIAL BLOOD GAS pH 7.42 (7.35-7.45)
[2022-05-21 14:59] LABS: BASO % 0.1 % (0.0-2.0); EOS # 0.1 K/mm3 (0.0-0.7); EOS % 0.7 % (0.0-4.0); GRAN # 5.7 K/mm3 (1.4-6.5); GRAN % 83.8 % (42.2-75.2); HEMATOCRIT 33.3 % (42.0-52.0); HEMOGLOBIN 10.9 g/dl (13.5-18.0); LYMPH # 0.6 K/mm3 (1.2-3.4); LYMPH % 9.1 % (20.0-51.0); MEAN CELL VOLUME 103 fl (80.0-100.0); MEAN CORPUSCULAR HEMOGLOBIN 34 pg (27-31); MEAN CORPUSCULAR HGB CONC 33 g/dl (33.0-37.0); MEAN PLATELET VOLUME 11.4 fl (7.4-10.4); MONO # 0.4 K/mm3 (0.1-0.6); MONO % 6.3 % (1.7-9.3); PLATELET COUNT 62 K/mm3 (130-400); RED BLOOD COUNT 3.22 M/mm3 (4.20-5.60); REDCELL DISTRIBUTION WIDTH-CV 14.3 % (11.5-14.5)
[2022-05-21 15:01] LABS: INR 1.5 (0.8-3.0); PROTHROMBIN TIME 17.6 SECONDS (9.7-12.8)
[2022-05-21 15:20] LABS: ALBUMIN 2.6 gm/dL (3.5-5.0); BILIRUBIN,TOTAL 1.5 mg/dL (0.2-1.2); CALCIUM 8.5 mg/dL (8.4-10.2); CREATININE, serum 0.8 mg/dL (0.72-1.25); POTASSIUM 4.1 mmol/L (3.5-4.5); TOTAL PROTEIN 6.3 gm/dL (6.2-8.1)
[2022-05-22] VITALS (634 sets, daily range): BP systolic 107–141; BP diastolic 76–99; PULSE 84–95; TEMP 98–99.1; O2SAT 85–100
[2022-05-22 05:25] LABS: BASO % 0.4 % (0.0-2.0); EOS # 0.2 K/mm3 (0.0-0.7); EOS % 2.8 % (0.0-4.0); GRAN # 4.2 K/mm3 (1.4-6.5); GRAN % 76.7 % (42.2-75.2); HEMATOCRIT 32.3 % (42.0-52.0); HEMOGLOBIN 10.6 g/dl (13.5-18.0); LYMPH # 0.7 K/mm3 (1.2-3.4); LYMPH % 13.1 % (20.0-51.0); MEAN CELL VOLUME 103 fl (80.0-100.0); MEAN CORPUSCULAR HEMOGLOBIN 34 pg (27-31); MEAN CORPUSCULAR HGB CONC 33 g/dl (33.0-37.0); MEAN PLATELET VOLUME 10.9 fl (7.4-10.4); MONO # 0.4 K/mm3 (0.1-0.6); MONO % 6.6 % (1.7-9.3); PLATELET COUNT 68 K/mm3 (130-400); RED BLOOD COUNT 3.15 M/mm3 (4.20-5.60); REDCELL DISTRIBUTION WIDTH-CV 14.6 % (11.5-14.5)
[2022-05-22 05:42] LABS: ALBUMIN 2.6 gm/dL (3.5-5.0); BILIRUBIN,TOTAL 1.6 mg/dL (0.2-1.2); CREATININE, serum 0.79 mg/dL (0.72-1.25); POTASSIUM 4.1 mmol/L (3.5-4.5); TOTAL PROTEIN 6.3 gm/dL (6.2-8.1)
--- NOTE | 2022-05-22 06:30 | NUR ---
REPORT RECEIVED FROM ROSEMARIE FATIMA; PATIENT WAS EXTUBATED SUCESSFULLY AND REMAINS OFF THE VENTILATOR AT THIS TIME. CURRENTLY PATIENT IS STILL ON NARCAN DRIP WELL NS AND BOTH ARE RUNNING THROUGH HIS PICC LINE. PATIENT IS CURRENTLY RESTING COMFORTABLY.
--- NOTE | 2022-05-22 18:40 | NUR ---
Patient had an uneventful day. Denied pain/nausea/shortness of breath. VS remain stable. PICC to right upper arm flushes without difficulty with good blood return. Denies current needs. Call light in reach. Will monitor.
[2022-05-23 00:40] VITALS: BP 140/92; PULSE 78; TEMP 99.1
[2022-05-23 04:15] VITALS: BP 129/84; PULSE 66; TEMP 97.7
--- NOTE | 2022-05-23 06:03 | NUR ---
alert and oriented, NC WNL, c/o mild discomfort in right hip after toradol and tylenol started. PICC line in MAICOL intact/secure. voiding using urinal. tolerating diet w/o N/V.
[2022-05-23 06:23] LABS: BASO % 0.6 % (0.0-2.0); EOS # 0.3 K/mm3 (0.0-0.7); EOS % 5.3 % (0.0-4.0); GRAN # 3.1 K/mm3 (1.4-6.5); GRAN % 62.6 % (42.2-75.2); HEMOGLOBIN 10.8 g/dl (13.5-18.0); LYMPH # 1.1 K/mm3 (1.2-3.4); LYMPH % 21.8 % (20.0-51.0); MEAN CELL VOLUME 106 fl (80.0-100.0); MEAN CORPUSCULAR HEMOGLOBIN 33 pg (27-31); MEAN CORPUSCULAR HGB CONC 32 g/dl (33.0-37.0); MEAN PLATELET VOLUME 10.4 fl (7.4-10.4); MONO # 0.5 K/mm3 (0.1-0.6); MONO % 9.5 % (1.7-9.3); PLATELET COUNT 72 K/mm3 (130-400); RED BLOOD COUNT 3.23 M/mm3 (4.20-5.60); REDCELL DISTRIBUTION WIDTH-CV 14.4 % (11.5-14.5)
[2022-05-23 06:26] LABS: HEMATOCRIT 34.1 % (42.0-52.0)
[2022-05-23 06:42] LABS: ALBUMIN 2.5 gm/dL (3.5-5.0); CREATININE, serum 0.78 mg/dL (0.72-1.25); MAGNESIUM 1.6 mg/dL (1.6-2.6); PHOSPHOROUS 4.6 mg/dL (2.3-4.7); POTASSIUM 3.8 mmol/L (3.5-4.5)
[2022-05-23 07:30] VITALS: BP 136/91; PULSE 67; TEMP 97.6
--- NOTE | 2022-05-23 11:22 | NUR ---
Grain Spouter followed up with patient about discharge planning as he was transferred up to the medical floor. Patient confirmed he lives in [place] with his partner, Brianna and still sees Dr. Garay for primary care. Patient has a walker at home that he uses when his knee is bothering him. Patient stated he needs some help with putting on his socks, but other than that he is independent with ADLS. SW addressed patient's positive UDS and alcohol use. Patient stated he does not regularly use meth, however used about a week ago when his friend came over and kept "shoving it in his face". 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 Patient advised he drinks a pint of hard liquor about every other day. Patient advised he goes to AA occasionally but is not involved with any other drug/alcohol services. Patient also denies any current mental health services. SW offered to help patient set up these services however he declined. SW provided drug/alcohol/mental health resource guide. Patient plans to return home at time of discharge.
[2022-05-23 12:00] VITALS: BP 145/94; PULSE 74
--- NOTE | 2022-05-23 13:17 | NUR ---
Wire Stripping Machine Operator received phone call from patient's mother, Xin who inquired about mental health services for patient. SW advised March that a resource guide was provided to patient and SW offered assistance with setting up services.
--- NOTE | 2022-05-23 16:12 | NUR ---
Patient was provided with discharge information. All questions answered. Telemetry and IV INT in left forearm were discontinued.
--- NOTE | 2022-05-23 16:14 | NUR ---
PICC MAICOL discontinued by [facility] staff.
== END 2022-05-23 16:18 | disposition home or self-care (01) | DRG 917 ==
LOC: COL.ER 21:05 → ICU 05-21 00:21 → MEDICAL 05-22 14:17
PROVIDERS: Family Medicine; Internal Medicine; Internal Medicine Pulmonary Disease; Nurse Practitioner Family; ADMIT Internal Medicine
PROC: 02HV33Z Insertion of Infusion Device into Superior Vena Cava, Percutaneous Approach (ICD-10-PCS; 2022-05-21)
PROC: 0BH17EZ Insertion of Endotracheal Airway into Trachea, Via Natural or Artificial Opening (ICD-10-PCS; principal; 2022-05-22)
PROC: 5A1935Z Respiratory Ventilation, Less than 24 Consecutive Hours (ICD-10-PCS; 2022-05-22)
DX: T40.601A Poisoning by unspecified narcotics, accidental (unintentional), initial encounter (principal); J96.02 Acute respiratory failure with hypercapnia; J96.01 Acute respiratory failure with hypoxia; G92.8 Other toxic encephalopathy; J69.0 Pneumonitis due to inhalation of food and vomit; E87.2 Acidosis; N17.9 Acute kidney failure, unspecified; G89.29 Other chronic pain; M25.551 Pain in right hip; F41.9 Anxiety disorder, unspecified; F32.A Depression, unspecified; Z96.641 Presence of right artificial hip joint; B19.20 Unspecified viral hepatitis C without hepatic coma; F19.10 Other psychoactive substance abuse, uncomplicated; D53.9 Nutritional anemia, unspecified; D69.6 Thrombocytopenia, unspecified; E83.39 Other disorders of phosphorus metabolism; E83.42 Hypomagnesemia; R73.9 Hyperglycemia, unspecified; G47.00 Insomnia, unspecified; F17.210 Nicotine dependence, cigarettes, uncomplicated; I27.20 Pulmonary hypertension, unspecified; Z79.2 Long term (current) use of antibiotics; Y92.89 Other specified places as the place of occurrence of the external cause; Z72.89 Other problems related to lifestyle; Z88.8 Allergy status to other drugs, medicaments and biological substances; Z23 Encounter for immunization
CPT/HCPCS: A4314; A9575; C1751; C1892; J0330; J0696; J1885; J2310; J2543; J2704; J3475; J7030; J7040

== ENCOUNTER 2022-06-27 17:12 | Observation (INO) | payer MEDICARE, MEDICAID ==
[~2022-06-27] VITALS: Ht 177.8 cm; Wt 111.4 kg
[2022-06-27 18:33] LABS: TROPONIN-I < 0.010 ng/mL (0.00-0.033)
[2022-06-27 18:42] LABS: ALANINE AMINOTRANSFERASE 16 U/L (0-55); ALBUMIN 3.1 gm/dL (3.5-5.0); ALKALINE PHOSPHATASE 97 U/L (40-150); ANION GAP 11 mmol/L (7-16); AST,SGOT 40 U/L (5-34); BILIRUBIN,TOTAL 1.4 mg/dL (0.2-1.2); BLOOD UREA NITROGEN 11 mg/dL (9-21); CALCIUM 9.2 mg/dL (8.4-10.2); CARBON DIOXIDE 23 mmol/L (22-29); CHLORIDE 108 mmol/L (98-107); CREATININE, serum 0.79 mg/dL (0.72-1.25); GLUCOSE 113 mg/dL (70-99); POTASSIUM 3.9 mmol/L (3.5-4.5); SODIUM 142 mmol/L (136-145)
[2022-06-27 18:46] LABS: BASO % 0.7 % (0.0-2.0); EOS # 0.2 K/mm3 (0.0-0.7); EOS % 4.7 % (0.0-4.0); GRAN # 2.6 K/mm3 (1.4-6.5); GRAN % 58.7 % (42.2-75.2); HEMATOCRIT 38.2 % (42.0-52.0); HEMOGLOBIN 12.6 g/dl (13.5-18.0); LYMPH # 1.1 K/mm3 (1.2-3.4); LYMPH % 23.9 % (20.0-51.0); MEAN CELL VOLUME 99 fl (80.0-100.0); MEAN CORPUSCULAR HEMOGLOBIN 33 pg (27-31); MEAN CORPUSCULAR HGB CONC 33 g/dl (33.0-37.0); MEAN PLATELET VOLUME 10.4 fl (7.4-10.4); MONO # 0.5 K/mm3 (0.1-0.6); MONO % 11.8 % (1.7-9.3); PLATELET COUNT 77 K/mm3 (130-400); RED BLOOD COUNT 3.85 M/mm3 (4.20-5.60); REDCELL DISTRIBUTION WIDTH-CV 15.4 % (11.5-14.5)
[2022-06-27] MEDS ORDERED: REMERON45 MG PO (20:59)
[2022-06-27] MEDS ORDERED: IBU600 MG PO (22:28)
[2022-06-27 23:51] VITALS: BP 113/65; PULSE 96; TEMP 98.1
[2022-06-28] VITALS (11 sets, daily range): BP systolic 95–117; BP diastolic 55–73; PULSE 68–100; TEMP 97.4–98.5
[2022-06-28 04:15] LABS: TRICYCLIC ANTIDEPRESS URINE NEGATIVE
--- NOTE | 2022-06-28 05:51 | NUR ---
PATIENT ARRIVED TO ROOM VIA WHEELCHAIR. PATIENT REMAINED ON 2L AND TOLERATED WELL. PATIENT IV INFILTRATED AND UNABLE TO RESTART NEW ONE. PROVIDER AWARE AND MADE CHANGES TO MEDICATIONS. PATIENT DIURESED AND TOLERATED WELL.
[2022-06-28 06:51] LABS: CALCIUM 9.2 mg/dL (8.4-10.2); CREATININE, serum 0.75 mg/dL (0.72-1.25); POTASSIUM 3.9 mmol/L (3.5-4.5)
[2022-06-28 07:11] LABS: BASO % 0.7 % (0.0-2.0); EOS # 0.2 K/mm3 (0.0-0.7); GRAN # 1.3 K/mm3 (1.4-6.5); GRAN % 44.5 % (42.2-75.2); LYMPH % 33.9 % (20.0-51.0); MEAN CELL VOLUME 99 fl (80.0-100.0); MEAN CORPUSCULAR HEMOGLOBIN 33 pg (27-31); MEAN CORPUSCULAR HGB CONC 33 g/dl (33.0-37.0); MEAN PLATELET VOLUME 11.3 fl (7.4-10.4); MONO # 0.4 K/mm3 (0.1-0.6); MONO % 14.6 % (1.7-9.3); PLATELET COUNT 70 K/mm3 (130-400); RED BLOOD COUNT 3.63 M/mm3 (4.20-5.60); REDCELL DISTRIBUTION WIDTH-CV 15.4 % (11.5-14.5)
[2022-06-28 07:12] LABS: HEMATOCRIT 36.1 % (42.0-52.0)
--- NOTE | 2022-06-28 08:12 | NUR ---
Call from PA student in regards to low blood pressure. Patient currently getting an ECHO so unable to recheck BP at this time. Patient is asymptomatic-denies light headedness, dizziness, shortness of breath or nausea. States he had been sleeping prior to ECHO. Will monitor.
--- NOTE | 2022-06-28 10:41 | NUR ---
Initial visit; Ted seems worried and depressed about his health issues. He was glad to talk with someone who knows his parents and went to school with his mom. Hot Mill Operator offered prayer for Ted, listened and will look in on him while he is here.
--- NOTE | 2022-06-28 12:55 | NUR ---
Sitting up in bed eating lunch. Denies pain or nausea. Short of breath with activity. Still on O2@2L/NC. Denies current needs. Call light in reach. Will monitor.
--- NOTE | 2022-06-28 13:45 | NUR ---
Primary nurse was assisted with [id number] patient care by [facility] [facility] [employer] ADN student Judy Fang [employer] instructor Mily Machado RN-BC
--- NOTE | 2022-06-28 14:22 | NUR ---
Polysom Tech met with patient to discuss discharge planning. Patient lives in [place] with his girlfriend, Brianna and sees Dr. Garay for primary care. Patient's parents are Azael and Xin Gordillo. Xin is patient's DPOA-HC and copy can be found in EMR. Patient obtains medications from [facility] and reports he has a walker and wheelchair at home. Patient reports he is independent with ADLS but waits until Brianna is home to bathe in case he needs any assistance. Patient has a history of alcohol and drug abuse and reports he goes to AA on a weekly basis. SW spoke with patient about mental health services but patient states he feels he is doing okay mentally at this time. Patient advised he and Brianna are getting food stamps, but recently the amount was lowered. Patient does not normally use oxygen, but is currently requiring it. Patient advised he plans to return home at time of discharge. Discharge Plan: Home
[2022-06-29 02:21] VITALS: BP 104/57; PULSE 84; TEMP 97.9
[2022-06-29 03:37] VITALS: BP 103/65; PULSE 81; TEMP 97.4
[2022-06-29 06:17] VITALS: BP 104/65; PULSE 76; TEMP 97.5
[2022-06-29 07:40] LABS: CREATININE, serum 0.7 mg/dL (0.72-1.25); MAGNESIUM 1.8 mg/dL (1.6-2.6)
[2022-06-29 07:43] LABS: BASO % 0.6 % (0.0-2.0); EOS # 0.1 K/mm3 (0.0-0.7); GRAN # 3.6 K/mm3 (1.4-6.5); GRAN % 73.7 % (42.2-75.2); HEMOGLOBIN 11.8 g/dl (13.5-18.0); LYMPH # 0.8 K/mm3 (1.2-3.4); LYMPH % 15.3 % (20.0-51.0); MEAN CELL VOLUME 97 fl (80.0-100.0); MEAN CORPUSCULAR HEMOGLOBIN 32 pg (27-31); MEAN CORPUSCULAR HGB CONC 34 g/dl (33.0-37.0); MEAN PLATELET VOLUME 9.3 fl (7.4-10.4); MONO # 0.5 K/mm3 (0.1-0.6); MONO % 9.2 % (1.7-9.3); PLATELET COUNT 72 K/mm3 (130-400); RED BLOOD COUNT 3.64 M/mm3 (4.20-5.60); REDCELL DISTRIBUTION WIDTH-CV 14.8 % (11.5-14.5)
[2022-06-29 07:47] LABS: HEMATOCRIT 35.2 % (42.0-52.0)
[2022-06-29 08:14] VITALS: BP 93/47; PULSE 93; TEMP 97.4
[2022-06-29 09:17] VITALS: PULSE 87; TEMP 97.7
--- NOTE | 2022-06-29 10:11 | NUR ---
Follow-up visit; Patient states he is doing better and hopes to go home today. He spoke with his parents last night in [place] who offer support. Ted thanked Operator Cavity Pump and reached for her hand to thank her for visit and prayer.
[2022-06-29] MEDS ORDERED: MONODOX100 PO (11:05)
[2022-06-29] MEDS ORDERED: MEDROL 4MG DOSPA4 MG PO (11:05)
[2022-06-29] MEDS ORDERED: PROAIR HFA0.09 MG/AC IH (11:06)
--- NOTE | 2022-06-29 12:29 | NUR ---
Agree with student assessment of the patient. A&Ox4. VSS. No IV access. Denies pain and discomfort. Hoping to go home today. Call light within reach
--- NOTE | 2022-06-29 12:36 | NUR ---
Discharge paperwork reviewed with the patient. Patient verbalized an understanding to follow doctors orders. No IV access. Patient transfered by wheelchair to awaiting vehicle. No further needs expressed
--- NOTE | 2022-06-29 12:58 | NUR ---
Reconnaissance Crewmember attended clinical rounds with the team and patient to discharge home today. SW met with patient who advised he is ready to get back home. SW provided drug/alcohol resource list. SW collaborated with RT who performed exercise oximetry. Patient will not require home oxygen.
--- NOTE | 2022-06-29 13:34 | NUR ---
Primary nurse was assisted with [id number] patient care by [employer] [facility] student Judy Troncoso and [employer] instructor Mily Machado RN-.
== END 2022-06-29 12:36 | disposition home or self-care (01) ==
LOC: COL.ER 17:12 → MEDICAL 20:15
PROVIDERS: Emergency Medicine; Internal Medicine; Nurse Practitioner Family; Physician Assistant; ADMIT Student in an Organized Health Care Education/Training Program
DX: J96.01 Acute respiratory failure with hypoxia (principal); R60.0 Localized edema; F17.210 Nicotine dependence, cigarettes, uncomplicated; I27.20 Pulmonary hypertension, unspecified; F41.9 Anxiety disorder, unspecified; G47.00 Insomnia, unspecified; D53.9 Nutritional anemia, unspecified; D69.6 Thrombocytopenia, unspecified; B19.20 Unspecified viral hepatitis C without hepatic coma; E80.6 Other disorders of bilirubin metabolism; F19.11 Other psychoactive substance abuse, in remission; Z87.09 Personal history of other diseases of the respiratory system; Z79.899 Other long term (current) drug therapy; Z87.39 Personal history of other diseases of the musculoskeletal system and connective tissue
CPT/HCPCS: A9284; G0378; J1940; J7512; Q9967

== ENCOUNTER → 2023-12-12 | Outpatient (CLI) | payer MEDICARE, MEDICAID ==
[~2023-12-12] MED LIST changes: +IBU600 MG PO; +MEDROL 4MG DOSPA4 MG PO; +PROAIR HFA0.09 MG/AC IH; +REMERON45 MG PO
== END ==
LOC: COL.RAD 10:21
DX: Z12.5 Encounter for screening for malignant neoplasm of prostate (principal); Z11.4 Encounter for screening for human immunodeficiency virus [HIV]; M51.36 Other intervertebral disc degeneration, lumbar region; M41.86 Other forms of scoliosis, lumbar region; M25.512 Pain in left shoulder; M25.511 Pain in right shoulder; F52.21 Male erectile disorder; T84.50XD Infection and inflammatory reaction due to unspecified internal joint prosthesis, subsequent encounter; E78.2 Mixed hyperlipidemia; R73.9 Hyperglycemia, unspecified; F41.8 Other specified anxiety disorders; K90.9 Intestinal malabsorption, unspecified

== ENCOUNTER 2023-12-14 11:28 | Emergency (ER) | payer MEDICARE, MEDICAID ==
[~2023-12-14] VITALS: Ht 180.3 cm; Wt 106.8 kg
[2023-12-14 11:33] VITALS: TEMP 98.1
[2023-12-14] MEDS ORDERED: Doxycycline Monohydrate 100 MG CAP PO ONE (12:00)
[2023-12-14 12:37] LABS: BASO % 0.8 % (0.0-2.0); EOS # 0.2 K/mm3 (0.0-0.7); EOS % 3.8 % (0.0-4.0); GRAN % 60.8 % (42.2-75.2); HEMOGLOBIN 15.1 g/dl (13.5-18.0); LYMPH # 1.1 K/mm3 (1.2-3.4); LYMPH % 22.8 % (20.0-51.0); MEAN CELL VOLUME 101 fl (80.0-100.0); MEAN CORPUSCULAR HEMOGLOBIN 35 pg (27-31); MEAN CORPUSCULAR HGB CONC 34 g/dl (33.0-37.0); MEAN PLATELET VOLUME 10.6 fl (7.4-10.4); MONO # 0.6 K/mm3 (0.1-0.6); MONO % 11.6 % (1.7-9.3); PLATELET COUNT 66 K/mm3 (130-400); RED BLOOD COUNT 4.34 M/mm3 (4.20-5.60); REDCELL DISTRIBUTION WIDTH-CV 12.8 % (11.5-14.5)
[2023-12-14] MEDS ORDERED: DOXYCYCLINE 10100 MG PO (12:58)
[2023-12-14 13:34] VITALS: BP 132/93; PULSE 77
== END 2023-12-14 13:34 | disposition home or self-care (01) ==
LOC: COL.ER 11:28
PROVIDERS: Emergency Medicine
DX: L03.115 Cellulitis of right lower limb (principal)